=== PATIENT | female | born 1995 | race African-American/Black ===

== ENCOUNTER 2024-01-08 14:29 | Emergency (ER) | payer SELFPAY ==
[2024-01-08] MEDS ORDERED: Acetaminophen 500 MG TAB ONE (15:33)
[2024-01-08] MEDS ORDERED: diphenhydrAMINE 25 MG CAP ONE (15:33)
== END 2024-01-08 15:48 | disposition home or self-care (01) ==
LOC: CSHERS 14:29 → EEVIPCON 14:29 → CSHERS 15:48
DX: T63.441A Toxic effect of venom of bees, accidental (unintentional), initial encounter (principal)
CPT/HCPCS: 99282

== ENCOUNTER 2024-01-27 13:44 | Emergency (ER) | payer SELFPAY ==
[2024-01-27] MEDS ORDERED: cefTRIAXone (ROCEPHIN) 500 MG VIAL ONE (15:31)
[2024-01-27] MEDS ORDERED: Sterile Water 10 ML ONE (15:32)
[2024-01-27 15:47] LABS: Bilirubin Neg (Negative); Blood, Urine 10 (Negative); Clarity Slightly Cloudy (Clear); Glucose, Urine (Dipstick) Normal (Negative); Ketone, Urine Negative (Negative); Leukocyte 25 (Negative); Nitrite Negative (Negative); Protein, Urine (Dipstick) 15 mg/dl (Neg-Trace); Urobilinogen Normal mg/dL (Less than 2)
[2024-01-27 15:50] LABS: Pregnancy Test - Urine (BHCG) Negative (Negative); Pregu Control Background? CLEAR/WHITE (CLR/WHITE); Pregu Control Bar Appear? YES (CONTROL BAR)
[2024-01-27 16:04] LABS: Bacteria/HPF 4+ HPF (None Seen); CAUTI Indications for Culture Pelvic or flank pain; RBC/HPF 0-3 HPF (0-3); Squamous Epithelial 21-50 HPF (0-3)
[2024-01-27 16:06] LABS: Urine Culture Reflex Yes Yes
[2024-01-27 23:40] LABS: GC by PCR, Vaginal Swab Not Detected (NotDetected)
== END 2024-01-27 17:13 | disposition home or self-care (01) ==
LOC: CSHERS 13:44
DX: N76.0 Acute vaginitis (principal); Z20.2 Contact with and (suspected) exposure to infections with a predominantly sexual mode of transmission
CPT/HCPCS: 81001; 81025; 87077; 87086; 87186; 87480; 87510; 87591; 87660; 96372; 99283; J0696

== ENCOUNTER 2024-06-19 01:02 | Emergency (ER) | payer SELFPAY ==
[2024-06-19 01:37] LABS: Bilirubin Neg (Negative); Blood, Urine 50 (Negative); Clarity Clear (Clear); Glucose, Urine (Dipstick) Normal (Negative); Ketone, Urine Negative (Negative); Leukocyte Negative (Negative); Nitrite Negative (Negative); Protein, Urine (Dipstick) 30 mg/dl (Neg-Trace); Urobilinogen Normal mg/dL (Less than 2)
[2024-06-19 01:38] LABS: Pregnancy Test - Urine (BHCG) Negative (Negative); Pregu Control Background? CLEAR/WHITE (CLR/WHITE); Pregu Control Bar Appear? YES (CONTROL BAR)
[2024-06-19] MEDS ORDERED: cefTRIAXone (ROCEPHIN) 500 MG VIAL ONE (01:59)
[2024-06-19] MEDS ORDERED: Sterile Water 10 ML ONE (01:59)
[2024-06-19 02:05] LABS: Bacteria/HPF 2+ HPF (None Seen); CAUTI Indications for Culture Pregnancy
[2024-06-19 02:06] LABS: RBC/HPF 0-3 HPF (0-3)
[2024-06-19 02:07] LABS: Urine Culture Reflex Yes Yes
== END 2024-06-19 02:15 | disposition home or self-care (01) ==
LOC: CSHERS 01:02
DX: N73.9 Female pelvic inflammatory disease, unspecified (principal); J45.909 Unspecified asthma, uncomplicated; Z79.51 Long term (current) use of inhaled steroids
CPT/HCPCS: 81001; 81025; 87077; 87086; 87186; 96372; 99284; J0696

== ENCOUNTER 2025-07-05 03:12 | Emergency (ER) | payer OTHER, SELFPAY ==
[2025-07-05 03:38] LABS: #Basophils 0.08 10x3/uL (0.0-0.2); #Eosinophils 0.18 10x3/uL (0.0-0.5); #Monocytes 0.67 10x3/uL (0.0-1.1); #Neutrophils 5.38 10x3/uL (1.5-8.4); %Basophils 0.9 % (0.0-2.0); %Eosinophils 2.0 % (0.0-6.0); %Lymphocytes 31.2 % (18.0-47.0); %Monocytes 7.3 % (0.0-10.0); %Neutrophils 58.3 % (40.0-75.0); Hematocrit 35.1 % (34.9-44.5); Hemoglobin 11.0 g/dL (12.0-15.5); Mean Corpuscular Hemoglobin 21.4 pg (27.0-33.0); Mean Corpuscular Volume 68.3 fL (81.6-98.3); Platelet Count 447 10x3/uL (150-450); Red Blood Cell (RBC) Count 5.14 10x6/uL (3.90-5.03); White Blood Cell (WBC) Count 9.22 10x3/uL (3.5-10.5)
[2025-07-05 03:41] LABS: Glucose, Urine (Dipstick) Normal (Negative); Leukocyte Negative (Negative); Protein, Urine (Dipstick) 30 mg/dl (Neg-Trace); Specific Gravity, Urine 1.030 (1.005-1.030)
[2025-07-05 03:42] LABS: CAUTI Indications for Culture Dysuria,urgency,freq; Other Microscopic Description Less than 2 mL rec'd; Pregnancy Test - Urine (BHCG) Negative (Negative); Pregu Control Background? CLEAR/WHITE (CLR/WHITE); Pregu Control Bar Appear? YES (CONTROL BAR); RBC/HPF 0-3 HPF (0-3); WBC/HPF None Seen HPF (0-3)
[2025-07-05 03:45] LABS: Bacteria/HPF None Seen HPF (None Seen)
[2025-07-05 03:46] LABS: Urine Culture Reflex No No
[2025-07-05 03:53] LABS: ALT (SGPT) 11 U/L (Less than 34); AST (SGOT) 18 U/L (11-34); Albumin 3.6 g/dL (3.1-4.5); Alkaline Phosphatase 59 U/L (40-110); Anion Gap 12 mmol/L (10-20); BUN (Urea Nitrogen) 9 mg/dL (7.0-18.7); Bilirubin, Total 0.2 mg/dL (0.3-1.2); Calc. Creatinine Clearance 0 mL/min (70-130); Calcium 8.8 mg/dL (7.8-10.44); Carbon Dioxide 20 mmol/L (22-29); Chloride 108 mmol/L (98-107); Globulin 3.4 g/dL (2.4-3.5); Glucose 91 mg/dL (70-105); Lipase 16 U/L (8-78); Potassium 3.8 mmol/L (3.5-5.1); Sodium 136 mmol/L (136-145)
[2025-07-05] MEDS ORDERED: Ketorolac Tromethamine 30 MG (1 mL) VIAL ONE (03:57)
[2025-07-05] MEDS ORDERED: Iopamidol 300 61% 100 ML VIAL FS ONE (13:40)
== END 2025-07-05 04:57 | disposition home or self-care (01) ==
LOC: CSHERS 03:12
DX: R10.30 Lower abdominal pain, unspecified (principal); J45.909 Unspecified asthma, uncomplicated; Z79.51 Long term (current) use of inhaled steroids
CPT/HCPCS: 74177; 80053; 81001; 81025; 83690; 85025; 96374; J1885; Q9967